=== PATIENT | male | born 1945 | race Caucasian/White ===

== ENCOUNTER → 2024-01-02 11:17 | Outpatient (REF) | payer OTHER, SELFPAY | LOC: RAD 11:17 | PROVIDERS: ATTENDING PHYSICIAN Physician Assistant; FAMILY PHYSICIAN Internal Medicine; REFERRING PHYSICIAN Thoracic Surgery (Cardiothoracic Vascular Surgery) | DX: I65.21 Occlusion and stenosis of right carotid artery (principal); I65.22 Occlusion and stenosis of left carotid artery | CPT/HCPCS: 93880 ==

== ENCOUNTER → 2024-10-29 08:54 | Outpatient (REF) | payer OTHER, SELFPAY | LOC: RAD 08:54 | PROVIDERS: ATTENDING PHYSICIAN Surgery Vascular Surgery | DX: I65.21 Occlusion and stenosis of right carotid artery (principal) | CPT/HCPCS: 93880 ==